=== PATIENT | male | born 1990 | race Caucasian/White ===

== ENCOUNTER 2016-08-28 12:46 | Emergency (ER) | payer BC ==
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
[2016-08-28 14:45] VITALS: BP 114/86; PULSE 90; RESP 20; TEMP 98.1; O2SAT 93
== END 2016-08-28 14:45 | disposition home or self-care (01) ==
DX: S43.102A Unspecified dislocation of left acromioclavicular joint, initial encounter (principal); X58.XXXA Exposure to other specified factors, initial encounter
CPT/HCPCS: A4565